=== PATIENT | female | born 1995 | race Two or more races ===

== ENCOUNTER 2016-09-26 05:08 | Emergency (ER) | payer MEDICAID ==
[~2016-09-26] VITALS: Ht 160 cm; Wt 71.0 kg
[2016-09-26 06:29] LABS: CLARITY URINE CLOUDY (CLEAR); COLOR URINE ORANGE (YELLOW); GLUCOSE URINE NEGATIVE (NEGATIVE); KETONES URINE TRACE (NEGATIVE); LEUKOCYTE ESTERASE URINE 1+ (NEGATIVE); NITRITE URINE NEGATIVE (NEGATIVE); OCCULT BLOOD URINE 3+ (NEGATIVE); PH URINE 5.5 (4.5-8.0); PROTEIN URINE 2+ (NEGATIVE); SPECIFIC GRAVITY URINE 1.028 (1.005-1.030)
[2016-09-26 07:08] LABS: RBC URINE TNTC /hpf (0-2); SQUAMOUS EPITHELIAL CELL URINE 1+ /lpf (RARE/1+)
[2016-09-26 07:13] LABS: BACTERIA URINE 1+
[2016-09-26] MEDS ORDERED: KETOROLAC 60MG/2ML VIAL IM ONE (07:15)
[2016-09-26 11:12] VITALS: BP 98/65
== END 2016-09-26 11:14 | disposition home or self-care (01) ==
LOC: EDUNIT# 05:09 → ER 05:09
DX: R10.30 Lower abdominal pain, unspecified (principal); R30.0 Dysuria; R39.15 Urgency of urination; N94.6 Dysmenorrhea, unspecified; I10 Essential (primary) hypertension; J45.909 Unspecified asthma, uncomplicated; Z87.891 Personal history of nicotine dependence; Z98.890 Other specified postprocedural states
CPT/HCPCS: 81001; 81025; 96372; 99283; J1885; Z7610